=== PATIENT | female | born 1955 | race Caucasian/White ===

== ENCOUNTER 2016-05-08 22:27 | Inpatient (IN) | payer OTHER ==
[2016-05-08] MEDS ORDERED: PANTOPRAZOLE 40 MG/10 ML VIAL IVP STA (22:56)
[2016-05-08] MEDS ORDERED: SODIUM CHLORIDE 0.9% 1,000 ML IV STA (22:56)
--- NOTE | 2016-05-08 23:09 | ED ---
General Adult HPI - General Chief complaint: Abdominal Pain Stated complaint: Vomiting/Abd Pain Time Seen by Provider: 05/08/16 22:40 Source: patient, family, RN notes reviewed Mode of arrival: wheelchair Limitations: language barrier - History of Present Illness Initial comments: This is a 61-year-old female presents emergency Department complaining of vomiting all day long. Patient states she also has upper abdominal tenderness. Patient denies any diarrhea. Patient states more recently some of the vomitus patient denies any fever or chills. Patient denies any chest pain palpitations difficulty breathing shortness of breath. Patient denies any headache patient denies numbness weakness per patient denies any lightheadedness dizziness or near syncopal episode. has blood in it. - Related Data Home Medications Medication Instructions Recorded Confirmed Esomeprazole Magnesium [NexIUM] 1 tab PO DAILY 05/08/16 05/08/16 Allergies Allergy/AdvReac Type Severity Reaction Status Date / Time No Known Allergies Allergy Verified 05/08/16 22:40 Review of Systems ROS Statement: Those systems with pertinent positive or pertinent negative responses have been documented in the HPI. ROS Other: All systems not noted in ROS Statement are negative. Past Medical History Past Medical History: GERD/Reflux History of Any Multi-Drug Resistant Organisms: None Reported Past Surgical History: Cholecystectomy Past Psychological History: No Psychological Hx Reported Smoking Status: Current every day smoker Past Alcohol Use History: None Reported Past Drug Use History: None Reported General Exam - General Exam Comments Initial Comments: GENERAL: Patient is well-developed and well-nourished. Patient is nontoxic and well- hydrated and is in mild distress. ENT: Neck is soft and supple. No significant lymphadenopathy is noted. Oropharynx is clear. Moist mucous membranes. Neck has full range of motion without eliciting any pain. EYES: The sclera were anicteric and conjunctiva were pink and moist. Extraocular movements were intact and pupils were equal round and reactive to light. Eyelids were unremarkable. PULMONARY: Unlabored respirations. Good breath sounds bilaterally. No audible rales rhonchi or wheezing was noted. CARDIOVASCULAR: There is a regular rate and rhythm without any murmurs gallops or rubs. ABDOMEN: Mild epigastric tenderness. No palpable organomegaly was noted. There is no palpable pulsatile mass. SKIN: Skin is clear with no lesions or rashes and otherwise unremarkable. NEUROLOGIC: Patient is alert and oriented x3. Cranial nerves II through XII are grossly intact. Motor and sensory are also intact. Normal speech, volume and content. Symmetrical smile. MUSCULOSKELETAL: Normal extremities with adequate strength and full range of motion. No lower extremity swelling or edema. No calf tenderness. LYMPHATICS: No significant lymphadenopathy is noted PSYCHIATRIC: Normal psychiatric evaluation. Normal interpersonal interactions appears functionally intact in deals appropriately with others. No signs of depression. No signs of anxiety. Limitations: language barrier Course Vital Signs 05/08/16 22:38 Temperature 98.4 F Pulse Rate 80 Respiratory 20 Rate Blood Pressure 138/70 O2 Sat by Pulse 97 Oximetry Medical Decision Making - Medical Decision Making EKG shows a normal sinus rhythm at 71 bpm AK interval is 128 QRS is 74 Q-T intervals 42 QTC is 436. Patient's EKG shows no ST segment elevation or depression or T-wave abdomen is noted. Patient needs a second dose of Zofran because she continued to be nauseated. Patient's abdomen was improved when I went back in and palpated. - Lab Data Result diagrams: 05/08/16 23:05 05/08/16 23:05 Lab Results 05/08/16 05/08/16 05/08/16 Range/Units 23:05 23:05 23:05 WBC 16.2 H (3.8-10.6) k/uL RBC 5.48 H (3.80-5.40) m/uL Hgb 16.7 H (11.4-16.0) gm/dL Hct 49.2 H (34.0-46.0) % MCV 89.7 (80.0-100.0) fL MCH 30.4 (25.0-35.0) pg MCHC 33.9 (31.0-37.0) g/dL RDW 13.0 (11.5-15.5) % Plt Count 225 (150-450) k/uL Neutrophils % 84 % Lymphocytes % 11 % Monocytes % 3 % Eosinophils % 1 % Basophils % 0 % Neutrophils # 13.6 H (1.3-7.7) k/uL Lymphocytes # 1.8 (1.0-4.8) k/uL Monocytes # 0.4 (0-1.0) k/uL Eosinophils # 0.1 (0-0.7) k/uL Basophils # 0.0 (0-0.2) k/uL PT (9.0-12.0) sec INR (<1.1) APTT (22.0-30.0) sec Sodium 140 (137-145) mmol/L Potassium 5.1 (3.5-5.1) mmol/L Chloride 102 (98-107) mmol/L Carbon Dioxide 26 (22-30) mmol/L Anion Gap 12 mmol/L BUN 22 H (7-17) mg/dL Creatinine 1.10 H (0.52-1.04) mg/dL Est GFR (MDRD) Af Amer >60 (>60 ml/min/1.73 sqM) Est GFR (MDRD) Non-Af 50 (>60 ml/min/1.73 sqM) Glucose 135 H (74-99) mg/dL Plasma Lactic Acid Jet (0.7-2.0) mmol/L Calcium 10.6 H (8.4-10.2) mg/dL Total Bilirubin 0.7 (0.2-1.3) mg/dL AST 28 (14-36) U/L ALT 44 (9-52) U/L Alkaline Phosphatase 125 (38-126) U/L Total Creatine Kinase 57 (30-135) U/L CK-MB (CK-2) 1.5 (0.0-2.4) ng/mL CK-MB (CK-2) Rel Index 2.6 Troponin I <0.012 (0.000-0.034) ng/mL Total Protein 7.7 (6.3-8.2) g/dL Albumin 4.5 (3.5-5.0) g/dL Amylase 64 (30-110) U/L Lipase 148 (23-300) U/L Urine Color Urine Appearance (Clear) Urine pH (5.0-8.0) Ur Specific Howells (1.001-1.035) Urine Protein (Negative) Urine Glucose (UA) (Negative) Urine Ketones (Negative) Urine Blood (Negative) Urine Nitrite (Negative) Urine Bilirubin (Negative) Urine Urobilinogen (<2.0) mg/dL Ur Leukocyte Esterase (Negative) Urine RBC (0-5) /hpf Urine WBC (0-5) /hpf Ur Squamous Epith Cells (0-4) /hpf Urine Bacteria (None) /hpf Hyaline Casts (0-2) /lpf Urine Mucus (None) /hpf 05/08/16 05/08/16 05/08/16 Range/Units 23:05 23:05 23:49 WBC (3.8-10.6) k/uL RBC (3.80-5.40) m/uL Hgb (11.4-16.0) gm/dL Hct (34.0-46.0) % MCV (80.0-100.0) fL MCH (25.0-35.0) pg MCHC (31.0-37.0) g/dL RDW (11.5-15.5) % Plt Count (150-450) k/uL Neutrophils % % Lymphocytes % % Monocytes % % Eosinophils % % Basophils % % Neutrophils # (1.3-7.7) k/uL Lymphocytes # (1.0-4.8) k/uL Monocytes # (0-1.0) k/uL Eosinophils # (0-0.7) k/uL Basophils # (0-0.2) k/uL PT 10.2 (9.0-12.0) sec INR 1.0 (<1.1) APTT 20.0 L (22.0-30.0) sec Sodium (137-145) mmol/L Potassium (3.5-5.1) mmol/L Chloride (98-107) mmol/L Carbon Dioxide (22-30) mmol/L Anion Gap mmol/L BUN (7-17) mg/dL Creatinine (0.52-1.04) mg/dL Est GFR (MDRD) Af Amer (>60 ml/min/1.73 sqM) Est GFR (MDRD) Non-Af (>60 ml/min/1.73 sqM) Glucose (74-99) mg/dL Plasma Lactic Acid Jet 1.5 (0.7-2.0) mmol/L Calcium (8.4-10.2) mg/dL Total Bilirubin (0.2-1.3) mg/dL AST (14-36) U/L ALT (9-52) U/L Alkaline Phosphatase (38-126) U/L Total Creatine Kinase (30-135) U/L CK-MB (CK-2) (0.0-2.4) ng/mL CK-MB (CK-2) Rel Index Troponin I (0.000-0.034) ng/mL Total Protein (6.3-8.2) g/dL Albumin (3.5-5.0) g/dL Amylase (30-110) U/L Lipase (23-300) U/L Urine Color Dark Yellow Urine Appearance Cloudy H (Clear) Urine pH 5.5 (5.0-8.0) Ur Specific Howells 1.021 (1.001-1.035) Urine Protein 2+ H (Negative) Urine Glucose (UA) Negative (Negative) Urine Ketones Trace H (Negative) Urine Blood Trace H (Negative) Urine Nitrite Negative (Negative) Urine Bilirubin Negative (Negative) Urine Urobilinogen 2.0 (<2.0) mg/dL Ur Leukocyte Esterase Large H (Negative) Urine RBC 7 H (0-5) /hpf Urine WBC 19 H (0-5) /hpf Ur Squamous Epith Cells 6 H (0-4) /hpf Urine Bacteria Rare H (None) /hpf Hyaline Casts 84 H (0-2) /lpf Urine Mucus Many H (None) /hpf Disposition Clinical Impression: Hematemesis Disposition: ADMITTED IP TO THIS [facility] Time of Disposition: 00:57
[2016-05-08] MEDS: ONDANSETRON 4 MG/2 ML VIAL IVP STA (23:15)
[2016-05-08 23:18] LABS: Basophils % (A) 0 %; CH 30.6; CHCM 34.3; Eosinophils # (A) 0.1 k/uL (0-0.7); Eosinophils % (A) 1 %; HCT 49.2 % (34.0-46.0); HDW 2.41; HGB 16.7 gm/dL (11.4-16.0); Luc # (Auto) 0.14; Luc % (Auto) 1; Lymphocytes # (A) 1.8 k/uL (1.0-4.8); Lymphocytes % (A) 11 %; MCH 30.4 pg (25.0-35.0); MCHC 33.9 g/dL (31.0-37.0); MCV 89.7 fL (80.0-100.0); Mean Platelet Volume 7.3; Monocytes # (A) 0.4 k/uL (0-1.0); Monocytes % (A) 3 %; Neutrophils # (A) 13.6 k/uL (1.3-7.7); Neutrophils % (A) 84 %; RBC 5.48 m/uL (3.80-5.40); WBC 16.2 k/uL (3.8-10.6); WBC (Perox) 16.26
[2016-05-08 23:25] LABS: ALT 44 U/L (9-52); AST 28 U/L (14-36); Alkaline Phosphatase 125 U/L (38-126); Amylase 64 U/L (30-110); Anion Gap 12 mmol/L; Blood Urea Nitrogen 22 mg/dL (7-17); Calcium 10.6 mg/dL (8.4-10.2); Carbon Dioxide 26 mmol/L (22-30); Chloride 102 mmol/L (98-107); Glucose 135 mg/dL (74-99); Non-African American GFR(MDRD) 50 (>60 ml/min/1.73 sqM); Potassium 5.1 mmol/L (3.5-5.1); Sodium 140 mmol/L (137-145); Total Bilirubin 0.7 mg/dL (0.2-1.3); Total Protein 7.7 g/dL (6.3-8.2)
[2016-05-08 23:27] LABS: Prothrombin Time 10.2 sec (9.0-12.0)
[2016-05-08 23:35] LABS: Creatine Kinase 57 U/L (30-135)
[2016-05-08 23:48] LABS: Creatine Kinase MB 1.5 ng/mL (0.0-2.4); Troponin I <0.012 ng/mL (0.000-0.034)
[2016-05-09 00:01] LABS: Appearance,Urine Cloudy (Clear); Bacteria,Urine Rare /hpf; Bilirubin,Urine Negative (Negative); Glucose,Urine (UA) Negative (Negative); Ketones,Urine Trace (Negative); Leukocyte Esterase,Urine Large (Negative); Mucus,Urine Many /hpf; Nitrite,Urine Negative (Negative); PH, Urine 5.5 (5.0-8.0); Particle Count 20397; Protein,Urine 2+ (Negative); RBC,Urine 7 /hpf (0-5); Specific Gravity,Urine 1.021 (1.001-1.035); Squamous Epithelial Cell,Urine 6 /hpf (0-4); UA Billing (MACRO vs. MICRO) MICRO; WBC,Urine 19 /hpf (0-5)
[2016-05-09] MEDS ORDERED: SODIUM CHLORIDE 0.9% 1,000 ML IV ONE ×2 (00:08→10:56)
--- NOTE | 2016-05-09 00:29 | XR ---
EXAM: XR Abdomen, 1 View. CLINICAL HISTORY: Reason: abdominal pain TECHNIQUE: Frontal supine view of the abdomen/pelvis. COMPARISON: No relevant prior studies available. FINDINGS: Gastrointestinal tract: Right upper quadrant surgical clips compatible with previous cholecystectomy. Bowel gas pattern is nonspecific with mildly distended loops of small bowel in the central abdomen. No definite evidence of bowel obstruction. Scattered colonic fecal debris in nondilated colon. Organs: No abnormal calcifications identified. No radiopaque renal calculi. Bones/joints: Unremarkable. IMPRESSION: Nonspecific bowel gas pattern. No definite evidence of bowel obstruction.
[2016-05-09] MEDS: ONDANSETRON 4 MG/2 ML VIAL IVP STA (00:40)
[2016-05-09 02:08] VITALS: BMI 32.1
[2016-05-09] MEDS: SODIUM CHLORIDE 0.9% 1,000 ML IV ONE ×2 (02:12→12:27)
[2016-05-09] MEDS: ONDANSETRON 4 MG/2 ML VIAL IVP PRN ×2 (05:32→12:20)
[2016-05-09 07:10] LABS: Basophils # (A) 0.1 k/uL (0-0.2); Basophils % (A) 0 %; CH 30.8; CHCM 33.2; Eosinophils # (A) 0.1 k/uL (0-0.7); Eosinophils % (A) 1 %; HCT 45.3 % (34.0-46.0); HGB 14.7 gm/dL (11.4-16.0); Luc # (Auto) 0.14; Luc % (Auto) 1; Lymphocytes # (A) 1.8 k/uL (1.0-4.8); Lymphocytes % (A) 15 %; MCH 30.2 pg (25.0-35.0); MCHC 32.4 g/dL (31.0-37.0); MCV 93.2 fL (80.0-100.0); Mean Platelet Volume 8.4; Monocytes # (A) 0.4 k/uL (0-1.0); Monocytes % (A) 3 %; Neutrophils # (A) 9.3 k/uL (1.3-7.7); Neutrophils % (A) 79 %; RBC 4.86 m/uL (3.80-5.40); WBC 11.8 k/uL (3.8-10.6); WBC (Perox) 12.05
[2016-05-09] MEDS: PANTOPRAZOLE 40 MG/10 ML VIAL IVP SCH (08:01)
[2016-05-09] MEDS ORDERED: RX INFO: IV CONTRAST WAS GIVEN 1 EACH MISC MISCELLANE PRN (10:55)
[2016-05-09] MEDS ORDERED: MAG HYDROX/AL HYDROX/SIMETH 30 ML, HYOSCYAMINE ELIXIR 10 ML, CIMETIDINE HCL 300 MG, LID... PO STA ×4 (12:14)
[2016-05-09] MEDS: IOHEXOL 350 MG/ML 25 ML BOTTLE (ORAL USE) PO PRN ×2 (12:47→14:03)
--- NOTE | 2016-05-09 17:34 | HP ---
DATE OF ADMISSION: 05/09/2016. CHIEF COMPLAINT: Nausea, vomiting and abdominal pain. HISTORY OF PRESENT ILLNESS: This is a 61-year-old female who presented to the hospital with new onset nausea, vomiting, abdominal pain. The patient said that on Tuesday she ate some fried food which is normal for her, but small amount, later on that night she ate an orange and during the night she started having abdominal discomfort. She woke up in the morning where she was feeling nauseous all day. Around 6 p.m. yesterday she felt extremely nauseous and started at throwing up stomach contents, said there was no food, all greenish-colored bile. After vomiting 6 times in minutes, around 6 p.m., the patient had one time episode of streaks of blood with the vomitus. Patient was brought to the emergency department where she was started on IV fluids, Protonix, and x-ray was done which showed no ileus. Patient still currently reporting intractable nausea and vomiting, feeling extremely dehydrated, and said that the last time she went to the bathroom was 7 hours ago for a small amount of urine. The patient was started on Bactrim by her son due to possibility of urinary tract infection a few days ago, and since that time she has been feeling no symptoms of dysuria. Patient currently is alert, and oriented x3. Denying chest pain, shortness breath, dizziness, lightheadedness, or dysuria. PAST MEDICAL HISTORY: Significant for common bile duct obstruction due to gallstones. At that time the patient had ERCP and cholecystectomy. The patient had also hysterectomy in the past. ALLERGIES: No known drug allergies. REVIEW OF SYSTEMS: All 14 systems reviewed and negative except as above. PAST MEDICAL HISTORY: Significant for obesity, gallbladder disease with obstruction of the common bile duct, but healthy otherwise. PAST SURGICAL HISTORY: Partial hysterectomy, cholecystectomy, ERCP. The patient denied any EGD or colonoscopy done for appropriate age screening. SOCIAL HISTORY: Patient smokes less than a half-pack per day. Denied alcohol or drug abuse. Patient is independent with all of her daily activities. Lives at home independently. FAMILY HISTORY: Reviewed and negative. Home medications: 1. Aspirin 81 mg daily. 2. Ambien nightly as needed. 3. Zantac as needed. PHYSICAL EXAMINATION: VITAL SIGNS: 98.4, 80, 20, 138/70, 97% on room air. GENERAL: Stated age, in no acute distress. HEENT: Atraumatic, normocephalic. PERRLA. NECK: Supple, no masses. No thyromegaly. LUNGS: Clear to auscultation bilaterally. HEART: S1, S2. No murmur, rubs, or gallops. ABDOMEN: Soft, generalized tenderness. No guarding or rebound. Positive bowel sounds in all 4 quadrants. EXTREMITIES: Lower extremity no edema. PSYCH: Alert, and oriented x3. NEURO: No focal deficit. IMAGING AND LABS: White blood count 16 on presentation, currently 11.8, hemoglobin 16.7, now down 14.7. Platelets normal. PT, PTT, INR within normal limit. Chem-7 showed slight elevation in her creatinine at 1.10, glucose 135, blood calcium 10.6. UA was positive in all aspects. ASSESSMENT AND PLAN: 1. Intractable nausea and vomiting. 2. Likely gastroenteritis with viral etiology. 3. Acute kidney injury with severe dehydration. 4. Leukocytosis, likely related to hemoconcentration and reactive in nature. 5. Acute urinary tract infection. 6. Obesity. 7. Tobacco dependency. PLAN: 1. I would like to continue with hydration. Patient was receiving 100 mL/h. Currently, with no significant during output reported by nursing staff or the patient herself. I would like to give 1 liter of fluid, normal saline, as a one-time bolus and then continue normal saline at 100 mL/h. 2. I would like her to continue with Zofran every 4 hours as needed and continue with clear liquids diet. 3. Given the significant tenderness on physical examination in the right lower quadrant, I would like to obtain CT scan of the abdomen with oral and IV contrast. 4. I would like to consult GI for further evaluation given the patient's streak of blood after vomiting, but likely it is related to retching and significant vomiting. Will follow up with gastroenterology recommendations. 5. Discharge planning based on clinical progress.
--- NOTE | 2016-05-09 17:36 | CT ---
EXAMINATION TYPE: CT abdomen pelvis w con DATE OF EXAM: 05/09/2016 3:12 PM HISTORY: RLQ pain CT DLP: 1757mGycm Automated Exposure Control for Dose Reduction was Utilized. CONTRAST: CT scan of the abdomen and pelvis is performed with IV Contrast, patient injected with 80 ml mL of Vi sipaque 320. COMPARISON: CT abdomen August 06, 2010 FINDINGS: LUNG BASES: No significant abnormality is appreciated. LIVER/GB: Liver is diffusely low dense consistent with fatty infiltration. Cholecystectomy clips are redemonstrated. PANCREAS: No significant abnormality is seen. SPLEEN: Small splenules in the splenic hilum anteriorly are again seen. ADRENALS: No significant abnormality is seen. KIDNEYS: No significant abnormality is seen. BOWEL: A small size hiatal hernia is present. Evaluation of bowel is suboptimal as oral contrast does not pass stomach level. There is only slight prominence of the stomach. There is no suspicious dilat ation of duodenal sweep. There are fluid-filled prominent dilated small bowel loops throughout the abdomen with air-fluid leve ls inferiorly identified. There is mild to moderate wall thickening involving inferior small bowel lo ops with transition into nondilated small bowel loops in the pelvis. Some of these nondilated loops h ave mild abnormal wall thickening. Fluid is seen in nondistended terminal ileum. Fecal material is se en in nondistended colon. There is fairly long segment mild wall thickening involving the distal harper sverse colon as well as the left colon and sigmoid colon. Rectum is fecal filled without abnormal wal l thickening. Normal-appearing appendix is seen from cecum. UTERUS/ADNEXA: There is small to moderate amount of free fluid in pelvic cul-de-sac, abnormal finding in postmenopausal female. LYMPH NODES: No greater than 1cm abdominal or pelvic lymph nodes are appreciated. OSSEOUS STRUCTURES: Some multilevel spurring in the thoracic spine is present. OTHER: No significant additional abnormality is seen. IMPRESSION: The CT findings are consistent with a developing distal small bowel obstruction in the pe lvis with underlying enterocolitis suspected. Consider infectious or inflammatory etiologies for the latter.
[2016-05-09] MEDS ORDERED: BENZOCAINE SPRAY 100 APPLIC/CAN MUCOUS MEM PRN (19:02)
[2016-05-10] MEDS ORDERED: ZOLPIDEM 5 MG TAB PO PRN (01:21)
--- NOTE | 2016-05-10 06:57 | P.CONS ---
History of Present Illness - Reason for Consult Consult date: 05/09/16 Hematemesis - History of Present Illness 61-year old female admitted through the ER for acute onset of crampy low abdominal pains, nausea and vomiting. There was blood streaking of her vomitus. We were asked to see her for UGI bleeding. She has been started on protonix. Patient had similar episode a [place] ago [place]. Had prior hysterectomy and cholecystectomy. Patient has a UTI and was started on ceftriaxone. CT showed developing distal small bowel obstruction. Review of Systems Constitutional: Reported chilliness, no fever and sweats, no weight gain, or loss. HEENT: Negative for migraines, blurred vision or loss, earaches, drainage, tinnitus, oral mucosal lesions, dysphagia, or odynophagia. CARDIAC: Negative for chest pain, arrhythmias, or palpitation. RESPIRATORY: Negative for shortness of breath, hemoptysis, cough, or sputum production. GI: See HPI for pertinent findings. : Negative for hematuria, urgency, frequency, polyuria, or dysuria. 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 MUSCULOSKELETAL: Degenerative joint disease. NEUROLOGIC: Negative for stroke or TIA. ENDOCRINE: Has history of thyroid problems. SKIN: Negative for rash or itching. PSYCHIATRIC: Negative history for depression and anxiety Past Medical History Past Medical History: GERD/Reflux Additional Past Medical History / Comment(s): constipation History of Any Multi-Drug Resistant Organisms: None Reported Past Surgical History: Cholecystectomy Past Psychological History: No Psychological Hx Reported Smoking Status: Current every day smoker Past Alcohol Use History: None Reported Past Drug Use History: None Reported - Past Family History Father Family Medical History: Unable to Obtain Medications and Allergies Home Medications Medication Instructions Recorded Confirmed Type Esomeprazole Magnesium [NexIUM] 40 mg PO DAILY 05/08/16 05/09/16 History Zolpidem [Ambien] 10 mg PO HS PRN 05/09/16 05/09/16 History Allergies Allergy/AdvReac Type Severity Reaction Status Date / Time No Known Allergies Allergy Verified 05/09/16 11:10 Physical Exam Vitals: Vital Signs Temp Pulse Pulse Pulse Resp BP BP 05/09/16 20:16 97.8 F 65 16 133/77 05/09/16 14:20 96.9 F L 81 16 159/77 05/09/16 07:00 97.7 F 75 16 132/70 05/09/16 02:03 97.8 F 84 16 159/89 05/09/16 01:22 98.4 F 79 16 130/70 Pulse Ox 05/09/16 20:16 96 05/09/16 14:20 96 05/09/16 07:00 97 05/09/16 02:03 97 05/09/16 01:22 96 Intake and Output 05/09/16 05/09/16 05/10/16 14:59 22:59 06:59 Intake Total 1700 Balance 1700 Intake: IV 700 Sodium Chloride 0.9% 1, 700 000 ml @ 100 mls/hr IV . Q10H ONE Rx#:[id number] Intake, IV Titration 1000 Amount Sodium Chloride 0.9% 1, 1000 000 ml @ 999 mls/hr IV . Q1H1M ONE Rx#:[id number] Other: Voiding Method Toilet Toilet General appearance: The patient is very pleasant, alert, oriented, in acute distress. HENT: Head is normocephalic and atraumatic. Pupils are equal and reactive. Conjunctivae pink. Oropharynx is clear without lesions. Neck: Supple without lymphadenopathy. Trachea midline. Heart: S1 S2. Lungs: No crackles or wheezes are heard. No dullness to percussion. Abdomen: Soft, mild diffuse tenderness, mildly distended, bowel sounds present. No peritoneal signs. No palpable organomegaly or masses. Extremities: Normal skin color and turgor. No cyanosis, rash, ulceration, clubbing, or edema. Radial and pedal pulses are 2/4 bilaterally. Neurological: No focal deficits. Strength and sensation are grossly intact. Results CBC & Chem 7: 05/09/16 07:00 05/08/16 23:05 Labs: Abnormal Lab Results - Last 24 Hours (Table) 05/09/16 Range/Units 07:00 WBC 11.8 H (3.8-10.6) k/uL Neutrophils # 9.3 H (1.3-7.7) k/uL Assessment and Plan Plan: 61-year old female with picture of partial intestinal obstruction likely related to adhesions. GI bleeding likely on the basis of mucosal tear secondary to vomiting. Hb fairly stable. Agree with NG tube placement and surgical consultation. Did not schedule endoscopy at this time. Will follow with you with great interest.
[2016-05-10 08:01] LABS: Basophils # (A) 0.1 k/uL (0-0.2); Basophils % (A) 1 %; CH 30.5; CHCM 33.5; Eosinophils # (A) 0.1 k/uL (0-0.7); Eosinophils % (A) 1 %; HCT 38.9 % (34.0-46.0); HDW 2.45; HGB 13.2 gm/dL (11.4-16.0); Luc # (Auto) 0.19; Luc % (Auto) 2; Lymphocytes # (A) 2.3 k/uL (1.0-4.8); Lymphocytes % (A) 28 %; MCHC 33.9 g/dL (31.0-37.0); MCV 91.5 fL (80.0-100.0); Mean Platelet Volume 7.9; Monocytes # (A) 0.4 k/uL (0-1.0); Monocytes % (A) 4 %; Neutrophils # (A) 5.2 k/uL (1.3-7.7); Neutrophils % (A) 64 %; RBC 4.26 m/uL (3.80-5.40); RDW 12.9 % (11.5-15.5); WBC 8.2 k/uL (3.8-10.6); WBC (Perox) 8.65
[2016-05-10] MEDS: PANTOPRAZOLE 40 MG/10 ML VIAL IVP SCH (08:01)
[2016-05-10] MEDS: ENOXAPARIN 40 MG/0.4 ML SYRINGE SQ SCH (08:02)
[2016-05-10] MEDS: SODIUM CHLORIDE 0.9% 1,000 ML IV SCH ×2 (08:02→14:50)
[2016-05-10 08:16] LABS: ALT 35 U/L (9-52); AST 22 U/L (14-36); Alkaline Phosphatase 74 U/L (38-126); Anion Gap 8 mmol/L; Blood Urea Nitrogen 11 mg/dL (7-17); Calcium 8.3 mg/dL (8.4-10.2); Carbon Dioxide 26 mmol/L (22-30); Chloride 109 mmol/L (98-107); Glucose 91 mg/dL (74-99); Non-African American GFR(MDRD) >60 (>60 ml/min/1.73 sqM); Potassium 3.9 mmol/L (3.5-5.1); Sodium 143 mmol/L (137-145); Total Bilirubin 0.7 mg/dL (0.2-1.3); Total Protein 5.3 g/dL (6.3-8.2)
--- NOTE | 2016-05-10 12:17 | P.CON ---
Consult Note - . Consult date: 05/10/16 Assessment/Plan:: Thank you very much the asking me to see Mrs. Santillan. She is a very pleasant 60-year-old female who was admitted today before yesterday with almost 24-hour history of nausea and subsequent vomiting with generalized abdominal discomfort with cramps. Her symptoms progressively worsened at home and she was admitted. Was being treated for urinary tract infection prior to that with symptoms of dysuria. Did have some blood streaking offer emesis after multiple episodes of vomiting. Patient had had a previous cholecystectomy for cholelithiasis and ERCP subsequently for common duct stone. Also had hysterectomy in the past. Did have similar symptoms about a year ago which resolved the without surgery. Her abdominal films unremarkable showing a nonspecific bowel gas pattern. However the computed tomography scan did show some dilated loops. Small bowel with the question of a transition point and in the distal small bowel. There was thickening of the small bowel and large bowel indicating a possible inflammatory process but her obstruction couldn't be ruled out. Patient had the nasogastric tube placed last night. Had about 200 amounts of output through the night. However she is passed a fair amount of flatus during this morning and a small bowel movement. She was started on a liquid diet which she seems to be tolerating without nausea or vomiting. Past history as above. She is otherwise fairly healthy. Does have a history of GERD. ALLERGIES none known. Family history noncontributory. Systems review otherwise negative. No chest pain. Dysuria has improved. No vaginal discharge or bleeding. On examination the patient is awake alert the in no acute distress. Has a nasogastric tube in place. Temperature is normal. Vitals are normal. She is overweight the with a BMI of 32.1 hydration is satisfactory color is good. Abdomen is quite soft nondistended. Has lower abdominal surgical scars and lap khurram scars. No mass or organomegaly noted. Mild tenderness but no guarding or rebound or rigidity. No masses or hernias or organomegaly noted. Has good bowel sounds. Extremities normal BEFORE S[employer]OL [employer]ABYS[employer] intact. CT was reviewed as above. WBC is down to normal at 8000. Electrolytes are normal. Impression probably resolving partial small bowel obstruction possible gastroenteritis although she's not had any diarrhea per se. Recommendation Will R reviewed the abdominal films today. If unremarkable DC the NG tube and slowly advance her diet. Appreciate again the privilege to see Mrs. Georgos in consultation. We'll be glad to follow her along with you.
--- NOTE | 2016-05-10 12:52 | XR ---
EXAMINATION TYPE: XR abdomen complete w decub DATE OF EXAM: 05/10/2016 12:32 PM COMPARISON: NONE HISTORY: Vomiting TECHNIQUE: Supine, upright, and left side down lateral decubitus views of the abdomen are obtained. FINDINGS: Bowel gas pattern nonspecific with contrast seen throughout the colon. Arthropathy of the hips and hy pertrophic change of the spine noted. NG tube seen. Persistent prominent small bowel loops are noted. IMPRESSION: Nonspecific abdomen with retained contrast throughout the colon. There persists some dilated small naty wel loops suggest partial small bowel obstruction.
[2016-05-11] MEDS ORDERED: BISACODYL 10 MG SUPP RECTAL STA (07:07)
--- NOTE | 2016-05-11 07:08 | P.PN ---
Progress Note - Text The patient remains fairly stable. Denies any nausea or vomiting. However did not feel like eating any solid food yesterday. Tolerating liquids by mouth. A lot of flatus but only a tiny amount of stool. Denies any abdominal pain. Abdominal films showed a nonspecific bowel gas pattern. She has contrast in the colon now. However this still some slightly dilated loops of distal small bowel. On examination the patient is awake alert cheerful in no distress. Temperature is normal vitals are stable. Abdomen is quite soft nondistended with mild tenderness in the lower abdomen but no guarding or rebound. No mass or organomegaly noted. Impression resolving small bowel obstruction probably secondary to adhesions. Recommendation patient is anxious to go home. However we will obtain another x- ray upper abdomen today. Would like to see if she tolerates a soft diet. We will review the x-rays and see her back later today.
[2016-05-11 08:00] VITALS: BP 139/67; PULSE 67; RESP 17; TEMP 98
[2016-05-11] MEDS: ENOXAPARIN 40 MG/0.4 ML SYRINGE SQ SCH (08:47)
--- NOTE | 2016-05-11 09:21 | P.PN ---
Subjective This is a 61-year-old caught occasion female. She has a past medical history for common bile duct obstruction due to gallstones status post ERCP and cholecystectomy. she presented to [facility] with complaints of nausea, vomiting, abdominal pain. She ate fried food on Tuesday but during the night she also ate an orange and started having abdominal discomfort. She woke up in the morning nauseated all day and by 6 PM she was extremely nauseated and started throwing up. She vomited 6 times within a few minutes and then she had an episode of emesis with streaks of blood. She came into [facility] emergency center was started on IV fluids, Protonix. X-ray showed no ileus. She recently started on Bactrim for possible urinary tract infection a few days prior to this. She had no symptoms of dysuria. 05/10: Patient has been seen by Dr. Guidry. Agree with NG tube in surgical consultation. No endoscopy scheduled. CAT scan of the abdomen and pelvis reveals distal small bowel obstruction the pelvis with underlying enterocolitis suspected. Infectious or inflammatory etiologies.white count is down to 8.2.lipase 383.Dr. Oliveira is on consult. Diet to be advanced to clear liquid today for lunch. we will plan to advance to full liquids for supper and soft diet tomorrow. Objective - Vital Signs Vital signs: Vital Signs Temp 98.3 F 05/10/16 08:00 Pulse 70 05/10/16 08:00 Resp 16 05/10/16 08:00 BP 136/70 05/10/16 08:00 Pulse Ox 95 05/10/16 08:00 Intake & Output 05/09/16 05/10/16 05/10/16 18:59 06:59 18:59 Intake Total 1700 Balance 1700 Intake: IV 700 Sodium Chloride 0.9% 1, 700 000 ml @ 100 mls/hr IV . Q10H ONE Rx#:[id number] Intake, IV Titration 1000 Amount Sodium Chloride 0.9% 1, 1000 000 ml @ 999 mls/hr IV . Q1H1M ONE Rx#:[id number] Other: Voiding Method Toilet # Voids 2 - Exam Gen: This is a 61-year-old female. She is found sitting up in a chair and appears to be in no acute distress. HEENT: Head is atraumatic, normocephalic. Pupils equal, round. Sclerae is anicteric. NECK: Supple. No JVD. No lymphadenopathy. No thyromegaly. LUNGS: Clear to auscultation. No wheezes or rhonchi. No intercostal retractions. HEART: Regular rate and rhythm. No murmur. ABDOMEN: Soft. Bowel sounds are present. No masses. generalized tenderness. EXTREMITIES: No pedal edema. No calf tenderness. NEUROLOGICAL: Patient is awake, alert and oriented x3. Cranial nerves 2 through 12 are grossly intact. - Labs CBC & Chem 7: 05/10/16 07:30 05/10/16 07:30 Labs: Abnormal Lab Results - Last 24 Hours (Table) 05/10/16 05/10/16 Range/Units 07:30 07:30 Plt Count 145 L (150-450) k/uL Chloride 109 H (98-107) mmol/L Calcium 8.3 L (8.4-10.2) mg/dL Total Protein 5.3 L (6.3-8.2) g/dL Albumin 3.0 L (3.5-5.0) g/dL Lipase 383 H (23-300) U/L Assessment and Plan Plan: 1. Small bowel obstruction with nausea and vomiting. Diet to be advanced to clear liquids. Consult with Dr. Chao taylor. Consult with Dr. Oliveira in place. CAT scan of the abdomen and pelvis as above. Continue Zofran for nausea and Dilaudid for pain control. Continue IV fluids. 2. Acute kidney injury with severe dehydration. 3. Acute urinary tract infection. Continue ceftriaxone. 4. Tobacco use and dependence. 5. GERD and GI prophylaxis. Continue Protonix. 6. DVT prophylaxis. Continue Lovenox. Discharge plan: return home Impression and plan of care have been directed as dictated by the signing physician. Jolie Potter nurse practitioner acting as scribe for signing physician. Time with Patient: Greater than 30
[2016-05-11] MEDS: PANTOPRAZOLE 40 MG/10 ML VIAL IVP SCH (09:22)
--- NOTE | 2016-05-11 13:10 | XR ---
EXAMINATION TYPE: XR abdomen complete w decub DATE OF EXAM: 05/11/2016 12:37 PM COMPARISON: Previous exam 10 May 2016 HISTORY: Small bowel obstruction, constipation TECHNIQUE: 3 views the abdomen on 4 images FINDINGS: There is no evidence for pneumoperitoneum. The bowel gas pattern is unremarkable as there is air throughout nondilated small and large bowel. No sizeable air fluid levels. No mass effects are seen. No unusual calcifications. Surgical clips in the right upper quadrant. IMPRESSION: Contrast is again noted within the colon and some has progressed into the descending colon, follow-up as indicated
--- NOTE | 2016-05-12 15:19 | P.DS ---
Providers Date of admission: 05/09/16 00:57 Expected date of discharge: 05/11/16 Attending physician: Mak Norton Consults: 05/09/16 17:56 Consult Physician Routine Consulting Provider: Nacho Oliveira Consult Reason/Comments: sbo Do you want consulting provider notified?: Already Contacted Primary care physician: Felicia Wilburn [facility] Course: She has a past medical history for common bile duct obstruction due to gallstones status post ERCP and cholecystectomy. she presented to [facility] with complaints of nausea, vomiting, abdominal pain. She ate fried food on Tuesday but during the night she also ate an orange and started having abdominal discomfort. She woke up in the morning nauseated all day and by 6 PM she was extremely nauseated and started throwing up. She vomited 6 times within a few minutes and then she had an episode of emesis with streaks of blood. She came into [facility] emergency center was started on IV fluids, Protonix. X-ray showed no ileus. She recently started on Bactrim for possible urinary tract infection a few days prior to this. She had no symptoms of dysuria. 05/10: Patient has been seen by Dr. Guidry. Agree with NG tube in surgical consultation. No endoscopy scheduled. CAT scan of the abdomen and pelvis reveals distal small bowel obstruction the pelvis with underlying enterocolitis suspected. Infectious or inflammatory etiologies.white count is down to 8.2.lipase 383.Dr. Oliveira is on consult. Diet to be advanced to clear liquid today for lunch. we will plan to advance to full liquids for supper and soft diet tomorrow. 05/11: Patient has been cleared for discharge from general surgeon. The patient is eating without nausea or vomiting. She has had a bowel movement. Patient will be discharged home today in stable condition. Patient will be continued on Keflex for urinary tract infection. Discharge diagnoses: 1. Small bowel obstruction with nausea and vomiting. 2. Acute kidney injury with severe dehydration. 3. Acute urinary tract infection. 4. Tobacco use and dependence. 5. GERD 6. UTI Discharge plan: return home Impression and plan of care have been directed as dictated by the signing physician. Jolie Potter nurse practitioner acting as scribe for signing physician. Patient Condition at Discharge: Good Plan - Discharge Summary New Discharge Prescriptions: Cephalexin [Keflex] 500 mg PO Q8HR #21 cap Discharge Medication List Esomeprazole Magnesium [NexIUM] 40 mg PO DAILY 05/08/16 [History] Zolpidem [Ambien] 10 mg PO HS PRN 05/09/16 [History] Cephalexin [Keflex] 500 mg PO Q8HR #21 cap 05/11/16 [Rx] Follow up Appointment(s)/Referral(s): Lionel Duarte MD [Primary Care Provider] - 1 Week (Patient wants to schedule her own follow up appointment) Nacho Oliveira MD [STAFF PHYSICIAN] - 05/24/16 11:00 am Activity/Diet/Wound Care/Special Instructions: Low residue diet Discharge Disposition: HOME SELF-CARE
== END 2016-05-11 14:11 | disposition home or self-care (01) | DRG 389 ==
LOC: EC 22:27 → 3SUR 05-09 00:57 → OBSVTOIN 05-09 00:57
PROVIDERS: ADMIT Internal Medicine; ATTEND Internal Medicine
DX: K56.5 Intestinal adhesions [bands] with obstruction (postinfection) (principal); N17.9 Acute kidney failure, unspecified; K92.0 Hematemesis; N39.0 Urinary tract infection, site not specified; E86.0 Dehydration; E66.9 Obesity, unspecified; F17.210 Nicotine dependence, cigarettes, uncomplicated; K21.9 Gastro-esophageal reflux disease without esophagitis; K52.9 Noninfective gastroenteritis and colitis, unspecified; Z68.32 Body mass index [BMI] 32.0-32.9, adult; Z79.82 Long term (current) use of aspirin; Z79.899 Other long term (current) drug therapy
CPT/HCPCS: 36415; 74000; 74020; 74177; 80053; 81001; 82150; 82550; 82553; 83605; 83690; 84484; 85025; 85610; 85730; 93005; 96361; 96374; 96375; 99285

== ENCOUNTER → 2016-06-22 | Outpatient (CLI) | payer OTHER ==
--- NOTE | 2016-06-22 14:24 | BD ---
EXAMINATION TYPE: MG DEXA axial skeleton. DATE OF EXAM: 06/22/2016 1:54 PM COMPARISON: NONE CLINICAL HISTORY: POST MENOPAUSAL Height: 5'2 Weight: 177 FRAX RISK QUESTIONS: Alcohol (3 or more units per day): no Family History (Parent hip fracture): no Glucocorticoids (More than 3mos): no (Ex: prednisone, prednisolone, methylprednisolone, dexamethasone, and hydrocortisone). History of Fracture in Adulthood: no Secondary Osteoporosis: 1. Type 1 Diabetes: no 2. Hyperthyroidism: no 3. Menopause before 45: no 4. Malnutrition: no 5. Chronic liver disease: no Rheumatoid Arthritis: no Current Tobacco Use: yes RISK FACTORS HISTORY OF: Smoke tobacco: Active: Diet low in dairy products/other sources of calcium: Postmenopausal woman: MEDICATIONS: Additional Medications: Additional History: post menopausal EXAM MEASUREMENTS: Bone mineral densitometry was performed using the Hyperoptic System. Bone mineral density as measured about the Lumbar spine is: ----- L1-L4(G/cm2): 1.316 T Score Values are as follows: ----- L2: 0.6 ----- L3: 1.8 ----- L4: 2.1 ----- L1-L4:1.1 Bone mineral density about the R hip (g/cm2): 0.917 Bone mineral density about the L hip (g/cm2): 0.908 T Score values are as follows: -----R Neck: -0.9 -----L Neck: -0.9 -----R Total: 0.2 -----L Total: 0.1 IMPRESSION: Normal Range (Values between +1 and -1 indicate normal bone mass). Consider repeating this study in 5 years or sooner if there is some new clinical indication. NOTE: T-SCORE=SD OF THE YOUNG ADULT MEAN.
== END | disposition home or self-care (01) ==
LOC: RADBDWWP 13:16
PROVIDERS: ATTEND Internal Medicine
DX: Z78.0 Asymptomatic menopausal state (principal)
CPT/HCPCS: 77080

== ENCOUNTER → 2018-01-05 | Outpatient (CLI) | payer MEDICARE, OTHER ==
--- NOTE | 2018-01-05 15:07 | MM ---
Reason for exam: screening (asymptomatic). Baseline mammogram. History: Patient is postmenopausal. Physical Findings: Nurse did not find any significant physical abnormalities on exam. MG Screening Mammo w CAD Bilateral CC and MLO view(s) were taken. The breast tissue is heterogeneously dense. This may lower the sensitivity of mammography. Nodule upper outer quadrant left breast 11cm from nipple. Ultrasound is recommended. These results were verbally communicated with the patient and result sheet given to the patient on 01/05/18. ASSESSMENT: Incomplete: need additional imaging evaluation, BI-RAD 0 RECOMMENDATION: Ultrasound of the left breast.
--- NOTE | 2018-01-05 15:10 | USB ---
Reason for exam: additional evaluation requested from abnormal screening. History: Patient is postmenopausal. Physical Findings: Breast exam preformed at baseline screening. US Breast Workup Limited LT Left limited breast ultrasound including focal area of concern, retroareolar and axilla demonstrates a 0.4 x 0.4 x 0.8cm solid lesion at 3 o'clock. These results were verbally communicated with the patient and result sheet given to the patient on 01/05/18. ASSESSMENT: Suspicious, BI-RAD 4 RECOMMENDATION: Ultrasound core biopsy of the left breast. Called Dr. Duarte's office with mammographic findings. PRELIMINARY REPORT CALLED AND FAXED TO DR. DUARTE ON 01/05/18.
== END ==
LOC: RADMAMWWP 13:21
PROVIDERS: ATTEND Internal Medicine
DX: Z12.31 Encounter for screening mammogram for malignant neoplasm of breast (principal); R92.8 Other abnormal and inconclusive findings on diagnostic imaging of breast; N64.89 Other specified disorders of breast
CPT/HCPCS: 77067

== ENCOUNTER → 2018-01-18 | Day surgery (SDC) | payer MEDICARE, OTHER ==
[2018-01-18 12:26] VITALS: RESP 16; BMI 29.0
[2018-01-18 13:24] VITALS: BP 137/84; PULSE 61; TEMP 98.2
--- NOTE | 2018-01-18 14:53 | USB ---
EXAMINATION TYPE: US biopsy breast VAD LT, MG diagnostic mammo LT wo CAD DATE OF EXAM: 01/18/2018 CLINICAL HISTORY: R92.8 Abn mammo. TECHNIQUE: Ultrasound guided core biopsy of left 3:00 breast. COMPARISON: NONE FINDINGS: The procedure of ultrasound guided core biopsy was explained to the patient. Benefits, alternatives, and risks were discussed. An informed consent was then obtained. The patient was placed in supine positioning for imaging and for the procedure. The overlying skin was prepped and draped in usual sterile fashion. Lidocaine buffered with bicarbonate was used as anesthetic into the skin and subcutaneous tissue up to area of concern in the left 3:00 breast. A lily was made with surgical scalpel. Under ultrasound guidance, a 12-gauge vacuum assisted biopsy gun device was used to obtain 5 core samples. Following this, a biopsy clip was left in lesion. Postprocedural mammogram demonstrates appropriate clip deployment. The patient tolerated the procedure well without any immediate complication. The patient was kept in the radiology department for short stay after the procedure and then discharged home in stable condition. IMPRESSION: Successful, uncomplicated ultrasound guided core biopsy of area of concern in the left 3:00 breast, full pathology results to follow. Pathology Results: Benign LEFT BREAST, THREE O'CLOCK, ULTRASOUND GUIDED CORE BIOPSY: Fibroadenoma. Recommendation Follow up mammogram of the left breast in 6 months. STACEY
== END ==
LOC: RADUSWWP 11:57
PROVIDERS: ATTEND Internal Medicine
DX: D24.2 Benign neoplasm of left breast (principal)
CPT/HCPCS: 88305; 77065; 19083; A4648; J2001

== ENCOUNTER 2018-01-30 19:27 | Emergency (ER) | payer OTHER ==
[2018-01-30 19:40] VITALS: TEMP 98.7
[2018-01-30] MEDS ORDERED: HYDROmorphone 1 MG/ML 1 ML SYRINGE IVP STA (21:12)
[2018-01-30] MEDS ORDERED: ONDANSETRON 4 MG/2 ML VIAL IVP STA (21:12)
[2018-01-30] MEDS ORDERED: SODIUM CHLORIDE 0.9% 500 ML 500 ML IV STA (21:12)
--- NOTE | 2018-01-30 21:21 | ED ---
General Adult HPI - General Chief complaint: Abdominal Pain Stated complaint: Abd pain Time Seen by Provider: 01/30/18 20:57 Source: patient, family, RN notes reviewed Mode of arrival: ambulatory Limitations: no limitations - History of Present Illness Initial comments: Chief complaint and history of present illness is a 62-year-old female. Her son is her team foreman. He states that she's been having abdominal pain on again off again for the past 2 days. Patient's been complaining of severe abdominal pain for the past 3 hours. She did pass a small amount of gas and stool just prior to coming emergency room. He states that she has chronic constipation problems. He states he did give her a tramadol yesterday which helped until this morning. She is nauseated but not vomiting. Past history of ileus last year necessity NG tube and bowel rest. - Related Data Home Medications Medication Instructions Recorded Confirmed Aspirin [Adult Low Dose Aspirin EC] 81 mg PO DAILY 01/18/18 01/30/18 Linaclotide [Linzess] 290 mcg PO DAILY 01/30/18 01/30/18 Metoprolol Succinate (ER) [Toprol 12.5 mg PO DAILY 01/30/18 01/30/18 Xl] Ondansetron HCl [Zofran] 4 mg PO Q8H PRN 01/30/18 01/30/18 Ranitidine HCl [Zantac] 300 mg PO HS 01/30/18 01/30/18 traMADol HCl [Ultram] 50 mg PO ONCE 01/30/18 01/30/18 Allergies Allergy/AdvReac Type Severity Reaction Status Date / Time No Known Allergies Allergy Verified 01/30/18 21:21 Review of Systems ROS Statement: Those systems with pertinent positive or pertinent negative responses have been documented in the HPI. Review of systems. Patient complains of abdominal pain started suprapubic region in the upper abdomen. Mild back pain as well. Nausea no vomiting. No bowel movement for 3 days. Passes small amount of gas today just prior to coming to emergency room. Questions were interpreted by her son-in-law. Past medical problems significant for chronic constipation patient's on Rossana cyst. The patient's other medical problems include GERD and reflux, the patient had intestinal issues last year necessitating an NG tube for decompression. The patient's surgeries include cholecystectomy, hysterectomy and breast biopsy. Family history noncontributory. ALLERGIES none. Patient's a smoker, denies alcohol use. ROS Other: All systems not noted in ROS Statement are negative. Past Medical History Past Medical History: GERD/Reflux Additional Past Medical History / Comment(s): constipation, bowel obstruction, heart palpitations History of Any Multi-Drug Resistant Organisms: None Reported Past Surgical History: Cholecystectomy, Hysterectomy Additional Past Surgical History / Comment(s): breast biopsy Past Anesthesia/Blood Transfusion Reactions: No Reported Reaction Past Psychological History: No Psychological Hx Reported Smoking Status: Current every day smoker Past Alcohol Use History: None Reported Past Drug Use History: None Reported - Past Family History Father Family Medical History: Unable to Obtain General Exam - General Exam Comments Initial Comments: General: The patient is awake and alert, in moderate distress because of abdominal cramping and pain. The cramps come and go through the past 24-48 hours. Moderately severe at this time. Vital signs temperature 98.7 pulse 74 story rate 20 pulse ox 97% room air blood pressure 137/83 Eye: Normal Ears, nose, mouth and throat: There are moist mucous membranes Neck: No complaint of neck pain or stiffness. Cardiovascular: There is a regular rate and rhythm. No murmur, rub or gallop is appreciated. Respiratory: Lungs are clear to auscultation, respirations are non-labored, breath sounds are equal. No wheezes, stridor, rales, or rhonchi. Gastrointestinal: 3 days, no bowel movement. Moderate discomfort increasing over the past several hours. Tender to palpation. Active bowel sounds. No organomegaly appreciated. Back: Complains of mild back pain. Musculoskeletal: Normal ROM, no tenderness, There is no pedal edema. There is no calf tenderness or swelling. Sensation intact. Neurological: No complaint of any neuro deficits. Skin: No complaint of rashes Limitations: no limitations Course Vital Signs 01/30/18 01/30/18 19:36 23:09 Temperature 98.7 F Pulse Rate 74 66 Respiratory 20 16 Rate Blood Pressure 137/83 132/71 O2 Sat by Pulse 97 94 L Oximetry Medical Decision Making - Medical Decision Making Decision making; this is a 2-year-old female comes emergency room because of abdominal pain. No bowel movement for 3 days. She did have a small amount of stool just prior to coming emergency room and passed a small amount of gas. The patient has had a history of chronic constipation for which he takes medications. Nausea no vomiting. The patient's labs show white count of only 11 hemoglobin 14 hematocrit of 45. Potassium 4.4 a BUN of 17 creatinine 0.8 GFR 78. Lipase 301. Urine clean no signs of infection. X-ray of the abdomen was done and reviewed by Dr. Francisco his impression is no acute pathology appreciated. No signs of obstruction or constipation. The patient received IV fluids. She was given Dilaudid for discomfort soon after that she vomited a very large amount of spaghetti and sausage states she' s feeling significantly better. The patient wants to go home at this time. Lactic acid came back at 2.1. The patient will receive another liter of fluid. Family states she'll return if the pain returns or increases. Therevac was provided for home use at their request. Patient's feeling much better on discharge. Advised return emergency room as needed. Advance diet clear liquids first. Follow-up with family physician use Tylenol for pain. Try a stool softener. - Lab Data Result diagrams: 01/30/18 21:30 01/30/18 21:30 Lab Results 01/30/18 01/30/18 01/30/18 Range/Units 21:30 21:30 21:30 WBC 11.0 H (3.8-10.6) k/uL RBC 4.99 (3.80-5.40) m/uL Hgb 14.6 (11.4-16.0) gm/dL Hct 45.4 (34.0-46.0) % MCV 90.9 (80.0-100.0) fL MCH 29.3 (25.0-35.0) pg MCHC 32.3 (31.0-37.0) g/dL RDW 13.2 (11.5-15.5) % Plt Count 194 (150-450) k/uL Neutrophils % 64 % Lymphocytes % 28 % Monocytes % 5 % Eosinophils % 1 % Basophils % 1 % Neutrophils # 7.1 (1.3-7.7) k/uL Lymphocytes # 3.0 (1.0-4.8) k/uL Monocytes # 0.6 (0-1.0) k/uL Eosinophils # 0.1 (0-0.7) k/uL Basophils # 0.1 (0-0.2) k/uL PT (9.0-12.0) sec INR (<1.2) Sodium 142 (137-145) mmol/L Potassium 4.4 (3.5-5.1) mmol/L Chloride 106 (98-107) mmol/L Carbon Dioxide 26 (22-30) mmol/L Anion Gap 10 mmol/L BUN 17 (7-17) mg/dL Creatinine 0.80 (0.52-1.04) mg/dL Est GFR (CKD-EPI)AfAm >90 (>60 ml/min/1.73 sqM) Est GFR (CKD-EPI)NonAf 78 (>60 ml/min/1.73 sqM) Glucose 101 H (74-99) mg/dL Plasma Lactic Acid Jet 2.2 H* (0.7-2.0) mmol/L Calcium 9.6 (8.4-10.2) mg/dL Total Bilirubin 0.5 (0.2-1.3) mg/dL AST 36 (14-36) U/L ALT 41 (9-52) U/L Alkaline Phosphatase 115 (38-126) U/L Troponin I (0.000-0.034) ng/mL Total Protein 7.3 (6.3-8.2) g/dL Albumin 4.4 (3.5-5.0) g/dL Amylase 70 (30-110) U/L Lipase 301 H (23-300) U/L Urine Color Urine Appearance (Clear) Urine pH (5.0-8.0) Ur Specific Negley (1.001-1.035) Urine Protein (Negative) Urine Glucose (UA) (Negative) Urine Ketones (Negative) Urine Blood (Negative) Urine Nitrite (Negative) Urine Bilirubin (Negative) Urine Urobilinogen (<2.0) mg/dL Ur Leukocyte Esterase (Negative) Urine RBC (0-5) /hpf Urine WBC (0-5) /hpf Ur Squamous Epith Cells (0-4) /hpf Urine Mucus (None) /hpf 01/30/18 01/30/18 01/30/18 Range/Units 21:30 21:30 21:30 WBC (3.8-10.6) k/uL RBC (3.80-5.40) m/uL Hgb (11.4-16.0) gm/dL Hct (34.0-46.0) % MCV (80.0-100.0) fL MCH (25.0-35.0) pg MCHC (31.0-37.0) g/dL RDW (11.5-15.5) % Plt Count (150-450) k/uL Neutrophils % % Lymphocytes % % Monocytes % % Eosinophils % % Basophils % % Neutrophils # (1.3-7.7) k/uL Lymphocytes # (1.0-4.8) k/uL Monocytes # (0-1.0) k/uL Eosinophils # (0-0.7) k/uL Basophils # (0-0.2) k/uL PT 10.2 (9.0-12.0) sec INR 0.9 (<1.2) Sodium (137-145) mmol/L Potassium (3.5-5.1) mmol/L Chloride (98-107) mmol/L Carbon Dioxide (22-30) mmol/L Anion Gap mmol/L BUN (7-17) mg/dL Creatinine (0.52-1.04) mg/dL Est GFR (CKD-EPI)AfAm (>60 ml/min/1.73 sqM) Est GFR (CKD-EPI)NonAf (>60 ml/min/1.73 sqM) Glucose (74-99) mg/dL Plasma Lactic Acid Jet (0.7-2.0) mmol/L Calcium (8.4-10.2) mg/dL Total Bilirubin (0.2-1.3) mg/dL AST (14-36) U/L ALT (9-52) U/L Alkaline Phosphatase (38-126) U/L Troponin I <0.012 (0.000-0.034) ng/mL Total Protein (6.3-8.2) g/dL Albumin (3.5-5.0) g/dL Amylase (30-110) U/L Lipase (23-300) U/L Urine Color Yellow Urine Appearance Clear (Clear) Urine pH 5.0 (5.0-8.0) Ur Specific [place] 1.010 (1.001-1.035) Urine Protein Negative (Negative) Urine Glucose (UA) Negative (Negative) Urine Ketones Negative (Negative) Urine Blood Negative (Negative) Urine Nitrite Negative (Negative) Urine Bilirubin Negative (Negative) Urine Urobilinogen <2.0 (<2.0) mg/dL Ur Leukocyte Esterase Trace H (Negative) Urine RBC <1 (0-5) /hpf Urine WBC 2 (0-5) /hpf Ur Squamous Epith Cells 3 (0-4) /hpf Urine Mucus Rare H (None) /hpf Disposition Clinical Impression: Abdominal pain Disposition: HOME SELF-CARE Condition: Fair Instructions: Abdominal Pain (ED) Is patient prescribed a controlled substance at d/c from ED?: No Referrals: Lionel Duarte MD [Primary Care Provider] - 1-2 days Time of Disposition: 23:46
--- NOTE | 2018-01-30 21:51 | XR ---
EXAMINATION TYPE: XR abdomen 2V DATE OF EXAM: 01/30/2018 COMPARISON: 05/11/2016 HISTORY: Abdominal pain TECHNIQUE: Supine and upright views FINDINGS: There are clips from cholecystectomy. Bowel gas pattern is normal. There is no sign of inte stinal obstruction or pneumoperitoneum. Fecal pattern is normal. There are no pathologic calcificatio ns over the kidneys. IMPRESSION: Nonacute abdomen. No adverse change compared to old exam. No evidence of constipation.
[2018-01-30 22:29] LABS: Basophils # (A) 0.1 k/uL (0-0.2); Basophils % (A) 1 %; Eosinophils # (A) 0.1 k/uL (0-0.7); Eosinophils % (A) 1 %; HCT 45.4 % (34.0-46.0); HGB 14.6 gm/dL (11.4-16.0); Lymphocytes % (A) 28 %; MCH 29.3 pg (25.0-35.0); MCHC 32.3 g/dL (31.0-37.0); MCV 90.9 fL (80.0-100.0); Mean Platelet Volume 7.7; Monocytes # (A) 0.6 k/uL (0-1.0); Monocytes % (A) 5 %; Neutrophils # (A) 7.1 k/uL (1.3-7.7); Neutrophils % (A) 64 %; Platelet Count 194 k/uL (150-450); RBC 4.99 m/uL (3.80-5.40); RDW 13.2 % (11.5-15.5)
[2018-01-30 22:34] LABS: INR 0.9 (<1.2); Prothrombin Time 10.2 sec (9.0-12.0)
[2018-01-30 22:35] LABS: Appearance,Urine Clear (Clear); Bilirubin,Urine Negative (Negative); Blood,Urine Negative (Negative); Color,Urine Yellow; Glucose,Urine (UA) Negative (Negative); Ketones,Urine Negative (Negative); Leukocyte Esterase,Urine Trace (Negative); Mucus,Urine Rare /hpf; Nitrite,Urine Negative (Negative); Protein,Urine Negative (Negative); RBC,Urine <1 /hpf (0-5); Squamous Epithelial Cell,Urine 3 /hpf (0-4); Urobilinogen,Urine <2.0 mg/dL (<2.0); WBC,Urine 2 /hpf (0-5)
[2018-01-30 22:39] LABS: ALT 41 U/L (9-52); AST 36 U/L (14-36); Albumin 4.4 g/dL (3.5-5.0); Alkaline Phosphatase 115 U/L (38-126); Amylase 70 U/L (30-110); Anion Gap 10 mmol/L; Blood Urea Nitrogen 17 mg/dL (7-17); Calcium 9.6 mg/dL (8.4-10.2); Carbon Dioxide 26 mmol/L (22-30); Chloride 106 mmol/L (98-107); Glucose 101 mg/dL (74-99); Lipase 301 U/L (23-300); Sodium 142 mmol/L (137-145); Total Bilirubin 0.5 mg/dL (0.2-1.3); Total Protein 7.3 g/dL (6.3-8.2)
[2018-01-30 22:40] LABS: Potassium 4.4 mmol/L (3.5-5.1)
[2018-01-30] MEDS ORDERED: DOCUSATE 283 MG/5 ML ENEMA RECTAL STA (23:02)
[2018-01-30] MEDS ORDERED: SODIUM CHLORIDE 0.9% 1,000 ML IV STA (23:13)
[2018-01-30] MEDS ORDERED: PANTOPRAZOLE 40 MG TABLET PO STA (23:46)
[2018-01-30 23:58] VITALS: BP 153/85; PULSE 75; RESP 20
== END 2018-01-31 00:07 | disposition home or self-care (01) ==
LOC: EC 19:27
DX: R10.9 Unspecified abdominal pain (principal); M54.9 Dorsalgia, unspecified; R11.0 Nausea; K21.9 Gastro-esophageal reflux disease without esophagitis; F17.200 Nicotine dependence, unspecified, uncomplicated; Z79.82 Long term (current) use of aspirin; Z79.891 Long term (current) use of opiate analgesic; Z79.899 Other long term (current) drug therapy; Z87.19 Personal history of other diseases of the digestive system; Z90.49 Acquired absence of other specified parts of digestive tract
CPT/HCPCS: 36415; 80053; 82150; 83605; 83690; 84484; 85025; 85610; 81001; 87040; 87086; 74019; 99284; 96374; 96375; 96361; J2405; J1170

== ENCOUNTER 2018-05-23 06:37 | Day surgery (SDC) | payer MEDICARE, OTHER ==
[2018-05-19 12:39] VITALS: BMI 31.7
[~2018-05-23 06:37] MED LIST: ALPRAZolam 0.25 MG TAB PO PRN; ALPRAZolam 0.5 MG TAB PO PRN; ASPIRIN 325 MG TAB PO STA; ATORVASTATIN 80 MG TAB PO STA; NITROGLYCERIN SL TABS 0.4 MG TAB SUBLINGUAL PRN; SODIUM CHLORIDE 0.9% 1,000 ML in EMPTY BAG 1 BAG IV ONE
[2018-05-23] MEDS ORDERED: LIDOCAINE 1% INJ 10MG/ML (20 ML MDV) ONE (07:12)
[2018-05-23] MEDS ORDERED: HEPARIN SODIUM 1,000 UN/ML (10ML VL) ONE (07:12)
[2018-05-23] MEDS ORDERED: VERAPAMIL 2.5 MG/ML 2 ML AMP ONE (07:12)
[2018-05-23] MEDS ORDERED: fentaNYL (PF) 50 MCG/ML 2 ML AMP ONE (07:12)
[2018-05-23 07:17] LABS: Basophils % (A) 1 %; Eosinophils # (A) 0.1 k/uL (0-0.7); Eosinophils % (A) 1 %; HCT 41.8 % (34.0-46.0); HGB 13.6 gm/dL (11.4-16.0); Lymphocytes # (A) 2.7 k/uL (1.0-4.8); Lymphocytes % (A) 37 %; MCH 29.4 pg (25.0-35.0); MCHC 32.7 g/dL (31.0-37.0); MCV 90.1 fL (80.0-100.0); Mean Platelet Volume 7.2; Monocytes # (A) 0.4 k/uL (0-1.0); Monocytes % (A) 6 %; Neutrophils # (A) 3.9 k/uL (1.3-7.7); Neutrophils % (A) 54 %; Platelet Count 173 k/uL (150-450); RBC 4.64 m/uL (3.80-5.40); WBC 7.3 k/uL (3.8-10.6)
[2018-05-23 07:24] LABS: Anion Gap 5 mmol/L; Blood Urea Nitrogen 14 mg/dL (7-17); Calcium 9.3 mg/dL (8.4-10.2); Carbon Dioxide 28 mmol/L (22-30); Chloride 109 mmol/L (98-107); Glucose 99 mg/dL (74-99); Potassium 4.6 mmol/L (3.5-5.1); Sodium 142 mmol/L (137-145)
[2018-05-23] MEDS ORDERED: IV FLUID CONTINUATION 1,000 ML IV ONE (07:27)
[2018-05-23] MEDS ORDERED: fentaNYL (PF) 50 MCG/ML 2 ML AMP IV ONE (07:38)
[2018-05-23] MEDS ORDERED: LIDOCAINE 1% INJ 10MG/ML (20 ML MDV) SQ ONE (07:44)
[2018-05-23] MEDS ORDERED: VERAPAMIL SYRINGE (5 MG/10 ML) INTRAARTER ONE (07:45)
[2018-05-23] MEDS ORDERED: HEPARIN SODIUM 1,000 UN/ML (10ML VL) IV ONE (07:46)
[2018-05-23] MEDS ORDERED: MIDAZOLAM 2 MG/2 ML VIAL IV ONE (07:50)
[2018-05-23] MEDS ORDERED: IOPAMIDOL-370 125ML BTL INJ ONE (07:55)
[2018-05-23] MEDS ORDERED: RX INFO: IV CONTRAST WAS GIVEN 1 EACH MISC MISCELLANE PRN (08:08)
[2018-05-23] MEDS ORDERED: FAMOTIDINE 20 MG TAB PO PRN (08:09)
[2018-05-23] MEDS ORDERED: ZOLPIDEM 5 MG TAB PO PRN (08:09)
[2018-05-23] MEDS ORDERED: SODIUM CHLORIDE 0.9% 1,000 ML IV SCH (08:15)
--- NOTE | 2018-05-23 08:24 | CC ---
CARDIAC CATHETERIZATION REPORT Mrs. Damian is a 63-year-old female with a history of hypertension, hyperlipidemia, history of chronic tobacco use and a strong family history of coronary artery disease, who has been complaining of increased amount of exertional chest discomfort, dyspnea and in view of that and her multiple risk factors recommendation was made regarding cardiac catheterization. The procedure as well as the risks and the complications were discussed with the patient who is in full understanding and agreement. PROCEDURE: Patient was brought to [facility] in the fasting semi-sedated state after receiving fentanyl and Benadryl and achieving moderate conscious sedated state. Using Xylocaine anesthesia in the Seldinger technique, a 6-Greenlandic sheath was introduced in the right radial artery. Selective right and left coronary angiography was performed using 5- Green[place]ic 3.5 bend right and left Vaishali catheters. Multiple views of the coronary artery including hemiaxial views obtained. From that 5-Green[place]ic tight pigtail catheter was introduced in the left ventricle and a 30-degree WILLIS view of the left ventricle was obtained. Following that, catheter and sheaths were removed. Hemostasis was obtained with deployment of a TR band. There was no immediate complication. The patient was returned to her room in stable condition. Of note, the patient received a 4500 units of intravenous heparin as well as intra-arterial verapamil. FINDINGS: LEFT MAIN: This is a large-sized vessel bifurcating left circumflex and left anterior descending artery. Left main coronary artery has no evidence of high-grade stenosis. LEFT ANTERIOR DESCENDING ARTERY: This is a large-sized vessel reaching toward the apex with a wraparound apex segment giving rise to 2 diagonal branches. The left anterior descending artery as well as branches have no evidence of obstructive coronary artery disease. LEFT CIRCUMFLEX: This is a small nondominant vessel giving rise to one obtuse marginal branch. The left circumflex as well as branches have no evidence of obstructive coronary artery disease. RIGHT CORONARY ARTERY: This is a large dominant vessel bifurcating into PDA and posterolateral segment and branches. The right coronary artery as well as branches have no evidence of obstructive coronary artery disease. LEFT VENTRICULOGRAM: Left ventriculogram was performed in 30-degree WILLIS view and revealed normal left ventricular size and systolic function. Ejection fraction 60%. There was no significant mitral regurgitation. HEMODYNAMICS: There was no gradient across the aortic valve. The left ventricular end- diastolic pressure was 16 to 20 mmHg. CONCLUSION: 1. Normal coronary arteries. 2. Normal left ventricular size and systolic function. RECOMMENDATION: In view of finding anatomy, I recommend to continue medical therapy with aggressive coronary risk factor modifications that have been initiated. Those findings and recommendations were discussed with the patient and her family and are in full understanding and agreement. Duration of procedure is 14 minutes. ADELIA / INNAN: [id number] /
[2018-05-23 08:34] VITALS: PULSE 65
[2018-05-23] MEDS ORDERED: METOPROLOL SUCCINATE (ER) 25 MG TAB.ER.24H PO SCH (09:00)
[2018-05-23] MEDS ORDERED: NON-FORMULARY DRUG (Aspirin [Adult Low Dose Aspirin Ec] 81 MG) PO SCH (09:00)
[2018-05-23 10:21] VITALS: RESP 20; TEMP 97.7
[2018-05-23 13:26] VITALS: BP 127/60
[2018-05-23] MEDS ORDERED: ATORVASTATIN 10 MG TAB PO SCH (21:00)
== END 2018-05-23 13:15 | disposition home or self-care (01) ==
LOC: CATHCVL 06:37
PROVIDERS: ATTEND Internal Medicine Interventional Cardiology
DX: R07.89 Other chest pain (principal); I10 Essential (primary) hypertension; E78.2 Mixed hyperlipidemia; F17.200 Nicotine dependence, unspecified, uncomplicated; Z79.82 Long term (current) use of aspirin; Z79.899 Other long term (current) drug therapy; Z82.49 Family history of ischemic heart disease and other diseases of the circulatory system; R06.00 Dyspnea, unspecified
CPT/HCPCS: 93458; 80048; 85025; 99152; C1894; C1769; J2250; J2001; J3010; J1644; Q9967

== ENCOUNTER → 2019-12-05 | Outpatient (CLI) | payer MEDICARE, OTHER ==
[2019-12-05 14:15] LABS: HCT 43.7 % (34.0-46.0); HGB 14.1 gm/dL (11.4-16.0); MCH 30.6 pg (25.0-35.0); MCHC 32.2 g/dL (31.0-37.0); MCV 94.9 fL (80.0-100.0); Mean Platelet Volume 8.1; Platelet Count 143 k/uL (150-450); RDW 13.1 % (11.5-15.5); WBC 6.6 k/uL (3.8-10.6)
[2019-12-05 21:52] LABS: African American GFR (CKD) 104.6 (60.0-200.0); Albumin/Globulin Ratio 2.11 (1.60-3.17); Anion Gap 7.3 mmol/L (4.00-12.00); BUN/Creat Ratio 17.14 Ratio (12.00-20.00); Calcium 9.3 mg/dL (8.7-10.3); Carbon Dioxide 26.7 mmol/L (21.6-31.8); Chol/HDL Ratio 3.31; Globulin 1.9 g/dL (1.6-3.3); Non-African American GFR(CKD) 90.3 (60.0-200.0); Potassium 4.7 mmol/L (3.5-5.5); Total Bilirubin 0.6 mg/dL (0.3-1.2); Total Protein 5.9 g/dL (6.2-8.2)
[2019-12-05 23:19] LABS: Hemoglobin A1C 5.8 % (4.0-6.0)
== END | disposition home or self-care (01) ==
LOC: LABWHC1 12:10
PROVIDERS: ATTEND Internal Medicine
DX: R53.82 Chronic fatigue, unspecified (principal); R10.9 Unspecified abdominal pain; E78.5 Hyperlipidemia, unspecified; E55.9 Vitamin D deficiency, unspecified; E11.9 Type 2 diabetes mellitus without complications; E53.8 Deficiency of other specified B group vitamins
CPT/HCPCS: 36415; 80053; 80061; 82306; 82607; 83036; 85027